=== PATIENT | female | born 1970 | race African-American/Black ===

== ENCOUNTER 2017-04-14 09:53 | Day surgery (SDC) | payer OTHER ==
[2017-04-14 10:36] VITALS: BMI 33.8
[2017-04-14] MEDS: oxyCODONE HCL 10 MG SUSTAINED ACTING TABLET PO STA (10:44)
[2017-04-14] MEDS ORDERED: THROMBIN (BOVINE) 5,000 UNIT VIAL TP ONE ×2 (10:51→13:27)
[2017-04-14] MEDS ORDERED: LIDOCAINE 1%/EPI 1:100000 (20 ML MULTI DOSE VIAL) ONE (10:51)
[2017-04-14] MEDS ORDERED: PROPOFOL 20 ML ONE ×14 (11:04→13:28)
[2017-04-14] MEDS ORDERED: MIDAZOLAM HCL 2 MG/2 ML SINGLE DOSE VIAL ONE (11:04)
[2017-04-14] MEDS ORDERED: ROCURONIUM BROMIDE 50 MG/5 ML VIAL ONE (11:04)
[2017-04-14] MEDS ORDERED: DEXAMETHASONE SOD PHOSPHATE 4 MG/1 ML VIAL ONE (11:20)
[2017-04-14] MEDS ORDERED: LIDOCAINE HCL/PF 2% SDV 5ML VIAL ONE (11:20)
[2017-04-14] MEDS ORDERED: ONDANSETRON 4 MG/2 ML VIAL ONE ×2 (11:20→15:35)
[2017-04-14] MEDS ORDERED: ceFAZolin SODIUM 1 GM VIAL ONE (11:20)
[2017-04-14] MEDS ORDERED: LIDOCAINE 1%/EPI 1:100000 (50 ML MULTI DOSE VIAL) INF ONE (12:00)
[2017-04-14] MEDS ORDERED: GELATIN SPONGE,ABSORBABLE 1 GM PACKET TP ONE (13:28)
[2017-04-14] MEDS ORDERED: ALBUTEROL SO4 18 GM HFA INHALER IH ONE (14:06)
[2017-04-14] MEDS ORDERED: ONDANSETRON 4 MG/2 ML VIAL IVPUSH PRN ×2 (14:25→14:34)
[2017-04-14] MEDS ORDERED: KETOROLAC TROMETHAMINE 30 MG/1 ML VIAL IVPUSH PRN (14:25)
[2017-04-14] MEDS ORDERED: oxyCODONE HCL 5 MG TABLET PO PRN ×3 (14:25→14:34)
[2017-04-14] MEDS ORDERED: morphine CARPU-JECT 4 MG/1 ML DISP.SYRIN IVPUSH PRN (14:25)
--- NOTE | 2017-04-14 14:25 | HP ---
History & Physical Update - History History: No Change - Physical Physical: No Change - Assessment Assessment: No Change - Plan Plan: No Change
[2017-04-14] MEDS ORDERED: diazePAM 5 MG TABLET PO ONE (14:28)
[2017-04-14] MEDS ORDERED: LACTATED RINGERS SOLUTION 1,000 ML IV SCH ×2 (14:30→14:45)
--- NOTE | 2017-04-14 14:33 | OP ---
Operative Note - Note: Operative Date: 04/14/17 Pre-Operative Diagnosis: Cervical stenosis Operation: ACDF C5-C7 Post-Operative Diagnosis: Same as Pre-op Surgeon: Jason Davis Sap Business Objects Developer: Sam Henry Anesthesiologist/FUR COAT SEWER: Gino Rubio Anesthesia: General Specimens Removed: C5/6, C6/7 discs Estimated Blood Loss (mls): 30 Fluid Volume Replaced (mls): 1,200 Operative Report Dictated: Yes
[2017-04-14] MEDS ORDERED: PROMETHAZINE HCL 25 MG/1 ML VIAL IVPUSH PRN (14:34)
--- NOTE | 2017-04-14 14:34 | SURG ---
Surgery Imposer Note Imposer: Sam Henry PA-C Date of Service: 04/14/17 Diagnosis: Cervical stenosis with radiculopathy Procedure: Anterior cervical (C5/6, C6/7) discectomy / fusion / decompression / instrumentation; allograft implant x2; neuromonitoring I was present for the entirety of the operative procedure. For further detail, please refer to operative report. Visit type - Case Type Case Type: Scheduled Admission - New patient This patient is new to me today: Yes Date on this admission: 04/14/17
[2017-04-14] MEDS ORDERED: KETOROLAC TROMETHAMINE 30 MG/1 ML VIAL ONE (15:35)
[2017-04-14] MEDS: oxyCODONE HCL 5 MG TABLET PO PRN (20:57)
[2017-04-14] MEDS: CEFAZOLIN 2 GM/D5W 50 ML IVPB SCH (20:57)
[2017-04-14] MEDS: CYCLOBENZAPRINE HCL 10 MG TABLET (FP) PO SCH (21:04)
[2017-04-15] MEDS: CEFAZOLIN 2 GM/D5W 50 ML IVPB SCH ×2 (04:59→11:55)
[2017-04-15] MEDS: CYCLOBENZAPRINE HCL 10 MG TABLET (FP) PO SCH (05:58)
[2017-04-15] MEDS ORDERED: LEVOTHYROXINE NA 125 MCG TABLET (FP) PO SCH (07:00)
--- NOTE | 2017-04-15 07:27 | DS ---
"Physical Exam: SUBJECTIVE: Patient seen and examined at the bedside Pt c/o some mild discomfort in her throat (related to ETT) and states pain is controlled. Wearing her c-collar as directed. OOB and ambulated unassisted to bathroom. Tolerating PO liquids. She denies any fever, chill, c/p SOB, new symptoms. OBJECTIVE: Vital Signs Temperature 99.1 F 04/15/17 05:37 Pulse Rate 56 L 04/15/17 05:37 Respiratory Rate 18 04/15/17 05:37 Blood Pressure 130/79 04/15/17 05:37 O2 Sat by Pulse Oximetry (%) 100 04/15/17 05:37 PHYSICAL EXAM GENERAL: The patient is awake, alert, and fully oriented, in no acute distress. HEAD: Normal with no signs of trauma. NECK: Trachea midline, incision c/d/i no evidence of palpable hematoma. Jaydon 40ss/ since surgery. LUNGS: Breath sounds equal, clear to auscultation bilaterally, no wheezes, no crackles, no accessory muscle use. NEUROLOGICAL: Cranial nerves II through XII grossly intact. Normal speech, LABS HOSPITAL COURSE: Date of Admission:04/14/17 Date of Discharge: 04/15/17 The patient was admitted to the Med-Surg Unit after an elective repair of their C5-C7 stenosis. Now, s/p C5-C7 ACDF. The day of surgery, the patient ambulated the hallways with assistance. Narcotic and non-narcotic pain management control was achieved with an oral and IV approach. POD #1, the surgical drain was removed fully intact and without incident. An xray was obtained and confirmed hardware placement at C5-C7, no fractures or dislocations. Jessica-operative IV ABX were administered. DVT prophylaxis was achieved with SCDs and early ambulation. The patient ambulated with Physical Therapy and no services were recommended upon discharge. Narcotic scripts and or muscle relaxants were checked with [facility] PERSONAL COMPUTER NETWORK ENGINEER --> report requested by: Sam Henry PA-C | Reference #: [id number]. The discharge instructions and an oral pain management plan were reviewed with the patient. All questions answered. Above plan discussed with Dr. Davis and agreed . Minutes to complete discharge: 15 <Sam Henry P - Last Filed: 04/15/17 10:12> Physical Exam: SUBJECTIVE: Patient seen and examined OBJECTIVE: Vital Signs Temperature 98.8 F 04/15/17 09:45 Pulse Rate 61 04/15/17 09:45 Respiratory Rate 18 04/15/17 09:45 Blood Pressure 131/75 04/15/17 09:45 O2 Sat by Pulse Oximetry (%) 100 04/15/17 05:37 PHYSICAL EXAM GENERAL: The patient is awake, alert, and fully oriented, in no acute distress. HEAD: Normal with no signs of trauma. EYES: PERRL, extraocular movements intact, sclera anicteric, conjunctiva clear. ENT: Ears normal, nares patent, oropharynx clear without exudates, moist mucous membranes. NECK: Trachea midline, full range of motion, supple. LUNGS: Breath sounds equal, clear to auscultation bilaterally, no wheezes, no crackles, no accessory muscle use. HEART: Regular rate and rhythm, S1, S2 without murmur, rub or gallop. ABDOMEN: Soft, nontender, nondistended, normoactive bowel sounds, no guarding, no rebound, no hepatosplenomegaly, no masses. EXTREMITIES: 2+ pulses, warm, well-perfused, no edema. NEUROLOGICAL: Cranial nerves II through XII grossly intact. Normal speech, gait not observed. PSYCH: Normal mood, normal affect. SKIN: Warm, dry, normal turgor, no rashes or lesions noted. LABS HOSPITAL COURSE: Date of Admission:04/14/17 Date of Discharge: 04/17/17 The patient was admitted to the Med-Surg Unit after an elective repair of their cervical stenosis. The day of surgery, the patient ambulated the hallways with assistance. Narcotic and non-narcotic pain management control was achieved with an oral and IV approach. POD #1, the surgical drain was removed fully intact and without incident. An xray was obtained and confirmed hardware placement at C5-6 and C6-7, no fractures or dislocations. Jessica-operative IV ABX were administered. DVT prophylaxis was achieved with SCDs and early ambulation. The patient ambulated with Physical Therapy and no services were recommended upon discharge. Narcotic scripts and or muscle relaxants were checked with [place] PERSONAL COMPUTER NETWORK ENGINEER prior to escibe. The discharge instructions and an oral pain management plan were reviewed with the patient. All questions answered. Above plan discussed with Dr. Davis and agreed. <Ryan,Jason - Last Filed: 04/17/17 09:51> Visit type - Case Type Case Type: Scheduled Admission <Sam Henry P - Last Filed: 04/15/17 10:12>"
[2017-04-15] MEDS: oxyCODONE HCL 10 MG SUSTAINED ACTING TABLET PO STA (08:22)
[2017-04-15] MEDS: oxyCODONE HCL 5 MG TABLET PO PRN (08:41)
--- NOTE | 2017-04-15 09:42 | OP ---
DATE OF OPERATION: 04/14/2017 PREOPERATIVE DIAGNOSIS: Cervical stenosis, C5-6 and C6-7. POSTOPERATIVE DIAGNOSIS: Cervical stenosis, C5-6 and C6-7. PROCEDURE PERFORMED: 1. Anterior cervical diskectomy and fusion, C5-6. 2. Anterior cervical diskectomy and fusion, C6-7. 3. Placement of instrumentation, C5, C6, C7. 4. Placement of prosthetic cages. SURGEON: Jason Davis MD TRAINING DEVELOPMENT MANAGER: YOANDY Domingo ESTIMATED BLOOD LOSS: 50 mL INTRAVENOUS FLUIDS: Per Anesthesia. COMPLICATIONS: None. DISPOSITION: Patient was brought to the PACU in stable condition. INDICATION FOR SURGERY: The patient is a 46-year-old female who has been suffering from pain from her neck down her right arm. X-rays and MRI were completed which noted that she had cervical stenosis at C5-6 and C6-7. She had gone through an exhaustive course of treatment for this, which included medications, physical therapy, as well as injections. Unfortunately, her pain continued to persist despite all this. At this point, risks, benefits, and alternatives were discussed, and the patient consented to surgery. DESCRIPTION OF OPERATIVE PROCEDURE: The patient was brought to the operating room by the anesthesia staff. After appropriate patient identification was performed, general anesthesia was administered. Appropriate anesthetic lines were placed. SCDs were placed on the patient. Neuromonitoring leads were attached. She was placed supine on the OR bed with her arms tucked in to the sides. A shoulder roll was placed underneath her neck to extend her neck to the point that she could tolerate it in the preoperative holding area. A needle was placed onto her neck to jeanie off the C5-6 location. An x-ray was taken to confirm this as correct. Needle was removed, and 10 mL of lidocaine with epinephrine were injected into her neck at this time. Her neck was prepped and draped in a sterile manner. At this point, timeout was completed. A 2-inch incision was made on the left side of her neck. Dissection was carried down to the platysma. The platysma was cut in line with the skin incision. Next, an interval between the sternocleidomastoid as well as strap muscles was developed. Next, the interval between the carotid sheath as well as tracheoesophagus was developed. Peanuts were used to elevate off the prevertebral fascia. A spinal needle was placed onto the C6-C7 disk. An x-ray was taken to confirm this was correct. At this point, the longus coli muscles were elevated off. Retractor blades were placed in. A Mauldin pin was placed into the body of C5 and C7, and distraction was applied. A knife was used to incise the disk. A Judd was used to take the disk off of the endplates. A microscope was brought in. Using a series of pituitaries, Kerrisons, and curettes, a diskectomy was completed. The endplates were decorticated at this time. Cages filled with bone graft were placed in. A screw was placed into the body of C5, C6, and C7. The Mauldin pin was removed. AP and lateral x-rays confirmed the instrumentation to be in good position. Final tightening was performed. All bleeding was well controlled. A drain was placed. The platysma was closed with 2-0 Vicryl suture. Skin was closed with 3-0 Monocryl suture. Dermabond was applied. Steri-Strips were applied. A sterile dressing was applied. Patient was placed supine on the OR bed, extubated in the OR, and brought to the PACU in stable condition. Carmen SOLARES/[id number]
[2017-04-15] MEDS ORDERED: CARVEDILOL 3.125 MG TABLET (FP) PO SCH (10:00)
--- NOTE | 2017-04-15 11:09 | PN ---
Progress Note (short form) - Note Progress Note: 46F POD1 s/p ACDF under GA-ETT. Pt c/o mild dysphagia and hoarseness. Pain is well controlled. Sensory and motor exam at baseline per pt in all four extremities.
[2017-04-15 12:18] VITALS: BP 131/75; PULSE 61; TEMP 98.8
--- NOTE | 2017-04-16 15:41 | PATH ---
Surgical Pathology Report Patient Name: KAREN LEVI [facility]. Rec. #: [id number] /Age/Gender: 1970 (Age: 46) / F Account: <[id number]> Location: [facility] Taken: 04/14/2017 Received: 04/14/2017 Reported: 04/16/2017 Physicians: Jason Davis M.D. Specimen(s) Received C5-6, C6-7 DISC Clinical History Cervical stenosis Final Diagnosis C5-6, C6-7, DISCECTOMY: CARTILAGE WITH DEGENERATIVE CHANGES. Electronically Signed Terri Harrington M.D. Gross Description Received in formalin labeled "C5, 6, C6-7 disc," is a 3.0 x 2.5 x 0.3 cm aggregate of sheppard fragments of fibrocartilaginous tissue. A door to door sales representative portion is submitted in one cassette. /04/15/2017 saudi04/15/2017
== END 2017-04-15 12:00 | disposition home or self-care (01) ==
LOC: FASU 09:53 → UNDOADMOB 16:53 → FM/S 16:53 → FASU 04-15 12:00
PROVIDERS: ATTEND Orthopaedic Surgery Orthopaedic Surgery of the Spine
PROC: 0RG10A0 Fusion of Cervical Vertebral Joint with Interbody Fusion Device, Anterior Approach, Anterior Column, Open Approach (ICD-10-PCS; 2017-04-14)
PROC: 0RG10K0 Fusion of Cervical Vertebral Joint with Nonautologous Tissue Substitute, Anterior Approach, Anterior Column, Open Approach (ICD-10-PCS; 2017-04-14)
PROC: 0RB30ZZ Excision of Cervical Vertebral Disc, Open Approach (ICD-10-PCS; principal; 2017-04-14 11:29)
DX: M48.02 Spinal stenosis, cervical region (principal)
CPT/HCPCS: 72050-TC; 76001-TC; 94010; 94760; 97116-GP; 97161-GP

== ENCOUNTER 2018-08-14 10:53 | Day surgery (SDC) | payer OTHER ==
[2018-08-13 11:58] VITALS: BMI 33.3
[2018-08-14] MEDS ORDERED: ROPIVACAINE HCL 0.5% 30ML VIAL ONE (12:00)
[2018-08-14] MEDS ORDERED: MIDAZOLAM HCL 2 MG/2 ML SINGLE DOSE VIAL ONE (12:01)
[2018-08-14] MEDS ORDERED: PROPOFOL 20 ML ONE ×2 (12:39)
[2018-08-14] MEDS ORDERED: SODIUM CHLORIDE 0.9% P/F 10 ML VIAL IJ ONE (13:07)
[2018-08-14] MEDS ORDERED: ceFAZolin SODIUM 1 GM VIAL ONE (13:07)
[2018-08-14] MEDS ORDERED: ONDANSETRON 4 MG/2 ML VIAL IVPUSH PRN (13:13)
[2018-08-14] MEDS ORDERED: oxyCODONE HCL 5 MG TABLET PO PRN ×2 (13:13)
[2018-08-14] MEDS ORDERED: LACTATED RINGERS SOLUTION 1,000 ML IV SCH (13:15)
[2018-08-14] MEDS ORDERED: LIDOCAINE HCL/PF 2% SDV 5ML VIAL ONE (13:27)
--- NOTE | 2018-08-14 14:56 | OP ---
DATE OF OPERATION: 08/14/2018 PREOPERATIVE DIAGNOSIS: Impingement with rotator cuff tear to the right shoulder. POSTOPERATIVE DIAGNOSIS: Impingement from the lateral acromion and coracoacrominal ligament, adhesions within the joint, impingement from the lateral clavicle including the distal articular surface, hypertrophic synovium, inflamed bursal tissue, impingement from the lateral clavicle, rotator cuff tear, glenoid labral tear. PROCEDURE PERFORMED: Shoulder decompression of subacromial space with partial acromioplasty with release and dissection of coracoacrominal ligament, lysis and resection of adhesions, distal claviculectomy including distal articular surface , partial synovectomy with extensive debridement, debridement of inflamed bursal tissue, debridement of rotator cuff tear, which was found to be partial thickness, and partial glenoid labral resection. SURGEON: Suly Trejo MD PERSONNEL SCHEDULER: Juwan Quiros. ANESTHESIA: Dr. Gonzalez, regional anesthesia with supplementation. DESCRIPTION OF PROCEDURE: The procedure consisted of the patient being brought into the operating room and gently transferred from the stretcher to the OR table with all bony prominences well padded. The right shoulder was prepared and draped in a sterile fashion. The patient was given intravenous antibiotics and copious irrigation throughout the procedure to minimize the risk of infection. A complete risk, benefit, alternative discussion was conducted with the patient, which was inclusive of, but not limited to, infection, bleeding, , paralysis, increased pain, need for repeat surgery. The patient asked questions, understood the procedure, and decided to proceed with the surgical treatment. Following sterile preparation and draping of the right shoulder, an appropriate time-out was conducted identifying the type of surgery, surgeon, anesthesiologist, location of surgery. Following sterile preparation and draping of the right shoulder, the patient had been placed in the right side up lateral decubitus position with great care taken to protect the facial features, the neck, and the extremities with a pillow between the legs and a pillow below the legs to protect the neurovascular structures of the legs and pneumatic device which contoured to the patient's body, was used. An axillary roll was used to protect the lower shoulder. Following this, gentle traction of approximately 10 pounds was applied across the shoulder joint using a traction device. Anterior, posterior, and lateral portals were used to introduce the arthroscope and arthroscopic instruments. The glenohumeral joint was evaluated. There was noted to be hypertrophic synovium. An extensive partial synovectomy was performed. There was noted to be adhesions within the joint, which were preventing expansion. These were lysed and resected. Middle glenoid humeral ligament and biceps tendon were found to be intact. Anterior and posterior recesses were without loose body. The glenoid labrum was found to have a tear, and a partial glenoid labral was performed. The articular side rotator cuff was found to have a tear, which was probed and found to be partial thickness, and this was debrided using a shaver and radiofrequency wand. The shoulder joint was copiously irrigated. Joint debris was identified, and joint debridement was performed. Attention was then turned to the subacromial space, and inflamed hypertrophic bursal tissue was identified, and an extensive partial bursectomy was performed. Rotator cuff on the bursal side was found to be intact. The acromion was noted to have an edge of bone on the outer edge creating impingement. This was debrided, and high-speed bur and shaver were used to resect a wedge of bone anteriorly then posteriorly. The coracoacrominal ligament was also creating impingement. This was lysed and resected. Lateral clavicle including the articular portion was creating impingement. This was debrided, and high-speed bur and shaver were used to resect the lateral clavicle including the articular portion. Following this, the shoulder joint was copiously irrigated, and the wounds were closed with 4-0 undyed Vicryl. We applied Steri-Strips, Xeroform, 4 x 4's, Combine, Elastoplast, and a shoulder immobilizer. The patient was then gently awoken from anesthesia without incident and transferred from the operating room to the recovery room in satisfactory condition. There were no intraoperative complications. SULY TREJO M.D. [id number] MTDD
[2018-08-14 15:42] VITALS: PULSE 65
[2018-08-14 16:26] VITALS: BP 107/69; TEMP 97.8
== END 2018-08-14 16:45 | disposition home or self-care (01) ==
LOC: FASU 10:53
PROVIDERS: ATTEND Orthopaedic Surgery
PROC: 0RNJ4ZZ Release Right Shoulder Joint, Percutaneous Endoscopic Approach (ICD-10-PCS; 2018-08-14)
PROC: 0RBJ4ZZ Excision of Right Shoulder Joint, Percutaneous Endoscopic Approach (ICD-10-PCS; 2018-08-14)
PROC: 0PB94ZZ Excision of Right Clavicle, Percutaneous Endoscopic Approach (ICD-10-PCS; 2018-08-14)
PROC: 0LQ14ZZ Repair Right Shoulder Tendon, Percutaneous Endoscopic Approach (ICD-10-PCS; principal; 2018-08-14 13:12)
DX: M75.111 Incomplete rotator cuff tear or rupture of right shoulder, not specified as traumatic (principal); M75.41 Impingement syndrome of right shoulder; M75.01 Adhesive capsulitis of right shoulder
CPT/HCPCS: 94760